=== PATIENT | male | born 1965 | race Caucasian/White ===

== ENCOUNTER 2020-11-22 09:17 | Inpatient (IN) | payer OTHER ==
[2020-11-22 10:32] VITALS: BMI 23.7
[2020-11-22] MEDS ORDERED: MAG HYDROX/AL HYDROX/SIMETH 30 ML UNIT-DOSE CUP PO PRN (13:29)
[2020-11-22] MEDS ORDERED: NICOTINE POLACRILEX 4 MG GUM BC PRN (13:29)
[2020-11-22] MEDS ORDERED: MAGNESIUM CITRATE 300 ML BOTTLE PO PRN (13:29)
[2020-11-22] MEDS ORDERED: P-EPHED 60MG/TRIPROLIDI 2.5MG TABLET PO PRN (13:29)
[2020-11-22] MEDS ORDERED: LOPERAMIDE HCL 2 MG CAPSULE PO PRN (13:29)
[2020-11-22] MEDS ORDERED: IBUPROFEN 400 MG TABLET (FP) PO PRN (13:29)
[2020-11-22] MEDS ORDERED: MAGNESIUM HYDROX 2400MG/30ML ORAL SUSPENSION 30 ML CUP PO PRN (13:29)
[2020-11-22] MEDS ORDERED: NICOTINE 21 MG/24 HOURS TOPICAL PATCH TD PRN (13:29)
[2020-11-22] MEDS ORDERED: ACETAMINOPHEN 325 MG TABLET (FP) PO PRN (13:29)
[2020-11-22] MEDS ORDERED: NICOTINE 10 MG CARTRIDGE (INHALER) IH PRN (13:29)
[2020-11-22] MEDS ORDERED: guaiFENesin 200 MG/10 ML 10 ML UNIT-DOSE CUPS PO PRN (13:29)
[2020-11-22] MEDS ORDERED: NICOTINE 7 MG/24 HOURS TOPICAL PATCH TD SCH (13:30)
[2020-11-22] MEDS: PRENATAL VITAMINS W/ FOLIC ACID TABLET (FP) PO SCH (14:34)
[2020-11-22] MEDS: hydrOXYzine PAMOATE 25 MG CAPSULE (FP) PO SCH ×3 (14:34→21:27)
[2020-11-22 18:00] LABS: HEMATOCRIT 44.9 % (35.4-49); HEMOGLOBIN 15.6 GM/dL (11.7-16.9); MCH 31.5 pg (25.7-33.7); MCHC 34.8 g/dl (32.0-35.9); MEAN CELL VOLUME 90.5 fl (80-96); MEAN PLT VOLUME 9.1 fl (7.5-11.1); PLATELET COUNT 222 10^3/uL (134-434); RBC 4.96 M/mm3 (4.00-5.60); RDW 12.9 % (11.9-15.9)
[2020-11-22 18:08] LABS: CALCIUM 8.7 mg/dL (8.5-10.1)
[2020-11-22 18:09] LABS: ALBUMIN 3.7 g/dl (3.4-5.0); BLOOD UREA NITROGEN 15.2 mg/dL (7-18)
[2020-11-22 18:12] LABS: CREATININE 0.8 mg/dL (0.55-1.3)
[2020-11-22 18:14] LABS: BILIRUBIN,TOTAL 0.3 mg/dL (0.2-1); TOT PROT 7.5 g/dl (6.4-8.2)
[2020-11-22 18:28] LABS: SYPHILIS W/ RPR CONF NON-REACTIVE (NONREACTIVE)
[2020-11-22 18:56] LABS: HIV INTERPRETATION NEGATIVE (NEGATIVE)
[2020-11-22] MEDS: THIAMINE HCL 100 MG TABLET (FP) PO SCH (21:27)
[2020-11-22] MEDS: MELATONIN 5 MG TABLETS PO SCH (21:27)
[2020-11-23] MEDS: hydrOXYzine PAMOATE 25 MG CAPSULE (FP) PO SCH ×2 (06:38→09:11)
[2020-11-23] MEDS ORDERED: methaDONE HCL 10 MG TABLET PO SCH (08:00)
[2020-11-23] MEDS ORDERED: methaDONE HCL 40 MG DISPERSABLE TABLET ONE (08:34)
[2020-11-23] MEDS ORDERED: methaDONE HCL 10 MG TABLET ONE (08:34)
[2020-11-23] MEDS: methaDONE 40 MG, methaDONE 10 MG PO SCH (08:42)
[2020-11-23] MEDS: PRENATAL VITAMINS W/ FOLIC ACID TABLET (FP) PO SCH (09:11)
[2020-11-23] MEDS ORDERED: hydrOXYzine PAMOATE 25 MG CAPSULE (FP) PO PRN (09:40)
[2020-11-23] MEDS ORDERED: FLU VACC QS2021-22(6MOS UP)/PF 60 MCG/0.5 ML SYRINGE IM ONE (12:00)
[2020-11-23] MEDS ORDERED: PT OWN MED DRAWER 7, Y5N ONE ×2 (13:50→15:58)
[2020-11-23 20:14] LABS: EPI CELLS 16 /uL (0-25.1); HYALINE CASTS 4 /uL (0-3.1); PH,URINE 6.5 (5.0-8.0); URINE APPEARANCE CLOUDY; URINE BACTERIA 48 /uL (0-1359); URINE BILIRUBIN NEGATIVE (NEGATIVE); URINE COLOR YELLOW; URINE GLUCOSE (UA) NEGATIVE (NEGATIVE); URINE KETONE NEGATIVE (NEGATIVE); URINE LEUK ESTERASE 3+ (NEGATIVE); URINE NITRITE NEGATIVE (NEGATIVE); URINE PROTEIN NEGATIVE (NEGATIVE); URINE RBC 36 /uL (0-23.9); URINE UROBILINOGEN 0.2 mg/dL (0.2-1.0); URINE WBC 1471 /uL (0-25.8)
[2020-11-23] MEDS: THIAMINE HCL 100 MG TABLET (FP) PO SCH (21:17)
[2020-11-23] MEDS: MELATONIN 5 MG TABLETS PO SCH (21:18)
[2020-11-23 21:57] LABS: YEAST SEEN (NEGATIVE)
[2020-11-24] MEDS ORDERED: methaDONE HCL 10 MG TABLET ONE (05:32)
[2020-11-24] MEDS ORDERED: methaDONE HCL 40 MG DISPERSABLE TABLET ONE (05:33)
[2020-11-24] MEDS: methaDONE 40 MG, methaDONE 10 MG PO SCH (06:37)
[2020-11-24] MEDS: PRENATAL VITAMINS W/ FOLIC ACID TABLET (FP) PO SCH (09:39)
[2020-11-24] MEDS ORDERED: PT OWN MED DRAWER 7, Y5N ONE ×2 (09:57→13:10)
[2020-11-24] MEDS: MELATONIN 5 MG TABLETS PO SCH (21:27)
[2020-11-24] MEDS: THIAMINE HCL 100 MG TABLET (FP) PO SCH (21:27)
[2020-11-25] MEDS ORDERED: methaDONE HCL 40 MG DISPERSABLE TABLET ONE (05:15)
[2020-11-25] MEDS ORDERED: methaDONE HCL 10 MG TABLET ONE (05:15)
[2020-11-25] MEDS: methaDONE 40 MG, methaDONE 10 MG PO SCH (06:37)
[2020-11-25 06:50] VITALS: BP 124/85; PULSE 60; TEMP 97.5
[2020-11-25] MEDS: PRENATAL VITAMINS W/ FOLIC ACID TABLET (FP) PO SCH (09:42)
== END 2020-11-25 11:53 | disposition home or self-care (01) | DRG 772 ==
LOC: YASAS 09:17 → Y3E 13:47
PROVIDERS: ADMIT Allergy & Immunology; ATTEND Allergy & Immunology
PROC: HZ42ZZZ Group Counseling for Substance Abuse Treatment, Cognitive-Behavioral (ICD-10-PCS; principal; 2020-11-22)
DX: F11.20 Opioid dependence, uncomplicated (principal); F10.20 Alcohol dependence, uncomplicated; F17.210 Nicotine dependence, cigarettes, uncomplicated; Z87.442 Personal history of urinary calculi
CPT/HCPCS: 36415; 71046-TC-FY; 80053; 81003; 85027; 86780; 86803; 87077; 87086; 87389; 87522; 90686; C9803; G0008; U0003; U0005

== ENCOUNTER 2021-07-25 11:35 | Inpatient (IN) | payer OTHER ==
[2021-07-25 11:55] VITALS: BMI 24.3
[2021-07-25] MEDS ORDERED: NICOTINE 10 MG CARTRIDGE (INHALER) IH PRN (12:42)
[2021-07-25] MEDS ORDERED: LOPERAMIDE HCL 2 MG CAPSULE PO PRN (12:42)
[2021-07-25] MEDS ORDERED: DICYCLOMINE HCL 10 MG CAPSULE PO PRN (12:42)
[2021-07-25] MEDS ORDERED: IBUPROFEN 400 MG TABLET (FP) PO PRN (12:42)
[2021-07-25] MEDS ORDERED: MAGNESIUM CITRATE 300 ML BOTTLE PO PRN (12:42)
[2021-07-25] MEDS ORDERED: ACETAMINOPHEN 325 MG TABLET (FP) PO PRN ×2 (12:42)
[2021-07-25] MEDS ORDERED: ONDANSETRON *ODT* 4 MG TABLET SL PRN (12:42)
[2021-07-25] MEDS ORDERED: MAGNESIUM HYDROX 2400MG/30ML ORAL SUSPENSION 30 ML CUP PO PRN (12:42)
[2021-07-25] MEDS ORDERED: IBUPROFEN 600 MG TABLET (FP) PO PRN (12:42)
[2021-07-25] MEDS ORDERED: BENZOCAINE/MENTHOL (CHLORASEPTIC ) LOZENGE MM PRN (12:42)
[2021-07-25] MEDS ORDERED: MAG HYDROX/AL HYDROX/SIMETH 30 ML UNIT-DOSE CUP PO PRN (12:42)
[2021-07-25] MEDS ORDERED: BISMUTH SUBSALICYLATE 524 MG/30 ML PO PRN (12:42)
[2021-07-25] MEDS: NICOTINE 21 MG/24 HOURS TOPICAL PATCH TD SCH (15:43)
[2021-07-25] MEDS: hydrOXYzine PAMOATE 25 MG CAPSULE (FP) PO SCH ×3 (15:43→22:32)
[2021-07-25 16:41] LABS: CALCIUM 9.6 mg/dL (8.5-10.1)
[2021-07-25 16:42] LABS: ALBUMIN 3.9 g/dl (3.4-5.0); BLOOD UREA NITROGEN 22.4 mg/dL (7-18)
[2021-07-25 16:45] LABS: CREATININE 0.7 mg/dL (0.55-1.3)
[2021-07-25 16:46] LABS: BILIRUBIN,TOTAL 0.4 mg/dL (0.2-1); RDW 12.8 % (11.9-15.9); TOT PROT 7.3 g/dl (6.4-8.2); WHITE BLOOD COUNT 6.9 K/mm3 (4.0-10.0)
[2021-07-25 16:49] LABS: HEMATOCRIT 42.8 % (35.4-49); HEMOGLOBIN 14.7 GM/dL (11.7-16.9); MCH 30.4 pg (25.7-33.7); MCHC 34.3 g/dl (32.0-35.9); MEAN CELL VOLUME 88.9 fl (80-96); MEAN PLT VOLUME 9.4 fl (7.5-11.1); PLATELET COUNT 276 10^3/uL (134-434); RBC 4.81 M/mm3 (4.00-5.60)
[2021-07-25] MEDS: THIAMINE HCL 100 MG TABLET (FP) PO SCH (22:32)
[2021-07-25] MEDS: MELATONIN 5 MG TABLETS PO SCH (22:32)
[2021-07-26] MEDS ORDERED: diazePAM 5 MG TABLET PO SCH (05:00)
[2021-07-26] MEDS: hydrOXYzine PAMOATE 25 MG CAPSULE (FP) PO SCH ×5 (05:59→22:21)
[2021-07-26] MEDS ORDERED: methaDONE HCL 10 MG TABLET PO ONE (09:15)
[2021-07-26] MEDS ORDERED: methaDONE 40 MG, methaDONE 10 MG PO ONE (09:41)
[2021-07-26] MEDS ORDERED: methaDONE HCL 40 MG DISPERSABLE TABLET ONE (09:47)
[2021-07-26] MEDS ORDERED: methaDONE HCL 10 MG TABLET ONE (09:47)
[2021-07-26] MEDS ORDERED: diazePAM 5 MG TABLET PO PRN (09:49)
[2021-07-26] MEDS: PRENATAL VITAMINS W/ FOLIC ACID TABLET (FP) PO SCH (10:16)
[2021-07-26] MEDS: METHOCARBAMOL 500 MG TABLET PO PRN (10:16)
[2021-07-26] MEDS: NICOTINE 21 MG/24 HOURS TOPICAL PATCH TD SCH (10:17)
[2021-07-26] MEDS: diazePAM 5 MG TABLET PO SCH ×3 (10:45→22:21)
[2021-07-26] MEDS: MELATONIN 5 MG TABLETS PO SCH (22:21)
[2021-07-26] MEDS: THIAMINE HCL 100 MG TABLET (FP) PO SCH (22:21)
[2021-07-27] MEDS ORDERED: methaDONE HCL 10 MG TABLET ONE (04:10)
[2021-07-27] MEDS ORDERED: methaDONE HCL 40 MG DISPERSABLE TABLET ONE (04:10)
[2021-07-27] MEDS: methaDONE 40 MG, methaDONE 10 MG PO SCH (05:38)
[2021-07-27] MEDS: diazePAM 5 MG TABLET PO SCH ×3 (05:39→21:31)
[2021-07-27] MEDS: hydrOXYzine PAMOATE 25 MG CAPSULE (FP) PO SCH ×5 (05:39→21:30)
[2021-07-27] MEDS ORDERED: methaDONE HCL 10 MG TABLET PO SCH (06:00)
[2021-07-27] MEDS: PRENATAL VITAMINS W/ FOLIC ACID TABLET (FP) PO SCH (10:30)
[2021-07-27] MEDS: METHOCARBAMOL 500 MG TABLET PO PRN (10:31)
[2021-07-27] MEDS: NICOTINE 21 MG/24 HOURS TOPICAL PATCH TD SCH (10:31)
[2021-07-27] MEDS: MELATONIN 5 MG TABLETS PO SCH (21:31)
[2021-07-27] MEDS: THIAMINE HCL 100 MG TABLET (FP) PO SCH (21:31)
[2021-07-28] MEDS ORDERED: methaDONE HCL 10 MG TABLET ONE (04:37)
[2021-07-28] MEDS ORDERED: methaDONE HCL 40 MG DISPERSABLE TABLET ONE (04:38)
[2021-07-28] MEDS: diazePAM 5 MG TABLET PO SCH ×2 (05:56→17:38)
[2021-07-28] MEDS: methaDONE 40 MG, methaDONE 10 MG PO SCH (05:56)
[2021-07-28] MEDS: hydrOXYzine PAMOATE 25 MG CAPSULE (FP) PO SCH ×5 (05:56→22:33)
[2021-07-28] MEDS: PRENATAL VITAMINS W/ FOLIC ACID TABLET (FP) PO SCH (10:37)
[2021-07-28] MEDS: METHOCARBAMOL 500 MG TABLET PO PRN (10:37)
[2021-07-28] MEDS: NICOTINE 21 MG/24 HOURS TOPICAL PATCH TD SCH (10:37)
[2021-07-28] MEDS: THIAMINE HCL 100 MG TABLET (FP) PO SCH (22:33)
[2021-07-28] MEDS: MELATONIN 5 MG TABLETS PO SCH (22:33)
[2021-07-29] MEDS ORDERED: methaDONE HCL 10 MG TABLET ONE (04:19)
[2021-07-29] MEDS ORDERED: methaDONE HCL 40 MG DISPERSABLE TABLET ONE (04:19)
[2021-07-29] MEDS: methaDONE 40 MG, methaDONE 10 MG PO SCH (05:40)
[2021-07-29] MEDS: hydrOXYzine PAMOATE 25 MG CAPSULE (FP) PO SCH ×2 (05:41→10:25)
[2021-07-29] MEDS ORDERED: diazePAM 5 MG TABLET PO ONE (06:00)
[2021-07-29 06:43] VITALS: TEMP 97.3
[2021-07-29 09:29] VITALS: BP 117/96; PULSE 98
[2021-07-29] MEDS: NICOTINE 21 MG/24 HOURS TOPICAL PATCH TD SCH (10:25)
[2021-07-29] MEDS: PRENATAL VITAMINS W/ FOLIC ACID TABLET (FP) PO SCH (10:25)
== END 2021-07-29 12:47 | disposition other institution (70) | DRG 773 ==
LOC: YASAS 11:35 → Y6N 13:13
PROVIDERS: ADMIT Allergy & Immunology; ATTEND Surgery
PROC: HZ2ZZZZ Detoxification Services for Substance Abuse Treatment (ICD-10-PCS; principal; 2021-07-25)
DX: F10.230 Alcohol dependence with withdrawal, uncomplicated (principal); F11.20 Opioid dependence, uncomplicated; F17.210 Nicotine dependence, cigarettes, uncomplicated; K21.9 Gastro-esophageal reflux disease without esophagitis; Z87.442 Personal history of urinary calculi
CPT/HCPCS: 36415; 80053; 85027; 86780; 87811; C9803-CS; U0003; U0005

== ENCOUNTER 2021-07-29 12:09 | Inpatient (IN) | payer OTHER ==
[2021-07-29] MEDS ORDERED: guaiFENesin 200 MG/10 ML 10 ML UNIT-DOSE CUPS PO PRN (12:20)
[2021-07-29] MEDS ORDERED: hydrOXYzine PAMOATE 25 MG CAPSULE (FP) PO PRN (12:20)
[2021-07-29] MEDS ORDERED: MAGNESIUM HYDROX 2400MG/30ML ORAL SUSPENSION 30 ML CUP PO PRN (12:20)
[2021-07-29] MEDS ORDERED: BENZOCAINE/MENTHOL (CHLORASEPTIC ) LOZENGE MM PRN (12:20)
[2021-07-29] MEDS ORDERED: LOPERAMIDE HCL 2 MG CAPSULE PO PRN (12:20)
[2021-07-29] MEDS ORDERED: ACETAMINOPHEN 325 MG TABLET (FP) PO PRN (12:20)
[2021-07-29] MEDS ORDERED: IBUPROFEN 400 MG TABLET (FP) PO PRN (12:20)
[2021-07-29] MEDS ORDERED: MAGNESIUM CITRATE 300 ML BOTTLE PO PRN (12:20)
[2021-07-29] MEDS ORDERED: P-EPHED 60MG/TRIPROLIDI 2.5MG TABLET PO PRN (12:20)
[2021-07-29] MEDS ORDERED: NICOTINE 10 MG CARTRIDGE (INHALER) IH PRN (12:20)
[2021-07-29] MEDS ORDERED: MAG HYDROX/AL HYDROX/SIMETH 30 ML UNIT-DOSE CUP PO PRN (12:20)
[2021-07-29] MEDS ORDERED: METHOCARBAMOL 500 MG TABLET PO PRN (12:23)
[2021-07-29] MEDS: MELATONIN 5 MG TABLETS PO SCH (21:14)
[2021-07-29] MEDS: THIAMINE HCL 100 MG TABLET (FP) PO SCH (21:16)
[2021-07-30] MEDS: NICOTINE 7 MG/24 HOURS TOPICAL PATCH TD SCH (09:35)
[2021-07-30] MEDS: PRENATAL VITAMINS W/ FOLIC ACID TABLET (FP) PO SCH (09:35)
[2021-07-30] MEDS ORDERED: methaDONE HCL 10 MG TABLET ONE (10:15)
[2021-07-30] MEDS ORDERED: methaDONE HCL 40 MG DISPERSABLE TABLET ONE (10:16)
[2021-07-30] MEDS: methaDONE 40 MG, methaDONE 10 MG PO SCH (10:20)
[2021-07-30] MEDS: methaDONE HCL 40 MG DISPERSABLE TABLET PO SCH (10:29)
[2021-07-30 12:28] LABS: HIV INTERPRETATION NEGATIVE (NEGATIVE)
[2021-07-30] MEDS: THIAMINE HCL 100 MG TABLET (FP) PO SCH (21:45)
[2021-07-30] MEDS: MELATONIN 5 MG TABLETS PO SCH (21:45)
[2021-07-31] MEDS ORDERED: methaDONE HCL 40 MG DISPERSABLE TABLET ONE (04:03)
[2021-07-31] MEDS ORDERED: methaDONE HCL 10 MG TABLET ONE (04:03)
[2021-07-31] MEDS: methaDONE 40 MG, methaDONE 10 MG PO SCH (06:20)
[2021-07-31] MEDS: NICOTINE 7 MG/24 HOURS TOPICAL PATCH TD SCH (10:03)
[2021-07-31] MEDS: PRENATAL VITAMINS W/ FOLIC ACID TABLET (FP) PO SCH (10:03)
[2021-07-31] MEDS: MELATONIN 5 MG TABLETS PO SCH (21:04)
[2021-07-31] MEDS: THIAMINE HCL 100 MG TABLET (FP) PO SCH (21:04)
[2021-08-01] MEDS ORDERED: methaDONE HCL 10 MG TABLET ONE (04:27)
[2021-08-01] MEDS ORDERED: methaDONE HCL 40 MG DISPERSABLE TABLET ONE (04:28)
[2021-08-01] MEDS: methaDONE 40 MG, methaDONE 10 MG PO SCH (06:28)
[2021-08-01] MEDS: NICOTINE 7 MG/24 HOURS TOPICAL PATCH TD SCH (09:46)
[2021-08-01] MEDS: PRENATAL VITAMINS W/ FOLIC ACID TABLET (FP) PO SCH (09:46)
[2021-08-01] MEDS: THIAMINE HCL 100 MG TABLET (FP) PO SCH (21:16)
[2021-08-01] MEDS: MELATONIN 5 MG TABLETS PO SCH (21:16)
[2021-08-02] MEDS ORDERED: methaDONE HCL 10 MG TABLET ONE (05:08)
[2021-08-02] MEDS ORDERED: methaDONE HCL 40 MG DISPERSABLE TABLET ONE (05:08)
[2021-08-02] MEDS: methaDONE 40 MG, methaDONE 10 MG PO SCH (06:13)
[2021-08-02] MEDS: PRENATAL VITAMINS W/ FOLIC ACID TABLET (FP) PO SCH (09:42)
[2021-08-02] MEDS: NICOTINE 7 MG/24 HOURS TOPICAL PATCH TD SCH (09:42)
[2021-08-02] MEDS: THIAMINE HCL 100 MG TABLET (FP) PO SCH (21:28)
[2021-08-02] MEDS: MELATONIN 5 MG TABLETS PO SCH (21:28)
[2021-08-03] MEDS ORDERED: methaDONE HCL 10 MG TABLET ONE (03:03)
[2021-08-03] MEDS ORDERED: methaDONE HCL 40 MG DISPERSABLE TABLET ONE (03:04)
[2021-08-03] MEDS: methaDONE 40 MG, methaDONE 10 MG PO SCH (06:19)
[2021-08-03] MEDS: PRENATAL VITAMINS W/ FOLIC ACID TABLET (FP) PO SCH (09:33)
[2021-08-03] MEDS: NICOTINE 7 MG/24 HOURS TOPICAL PATCH TD SCH (09:33)
[2021-08-03] MEDS: THIAMINE HCL 100 MG TABLET (FP) PO SCH (21:13)
[2021-08-03] MEDS: MELATONIN 5 MG TABLETS PO SCH (21:13)
[2021-08-04] MEDS ORDERED: methaDONE HCL 40 MG DISPERSABLE TABLET ONE (03:12)
[2021-08-04] MEDS ORDERED: methaDONE HCL 10 MG TABLET ONE (03:12)
[2021-08-04] MEDS: methaDONE 40 MG, methaDONE 10 MG PO SCH (07:02)
[2021-08-04] MEDS: NICOTINE 7 MG/24 HOURS TOPICAL PATCH TD SCH (09:46)
[2021-08-04] MEDS: PRENATAL VITAMINS W/ FOLIC ACID TABLET (FP) PO SCH (09:46)
[2021-08-04] MEDS: MELATONIN 5 MG TABLETS PO SCH (22:02)
[2021-08-04] MEDS: THIAMINE HCL 100 MG TABLET (FP) PO SCH (22:02)
[2021-08-05] MEDS ORDERED: methaDONE HCL 10 MG TABLET ONE (03:02)
[2021-08-05] MEDS ORDERED: methaDONE HCL 40 MG DISPERSABLE TABLET ONE (03:03)
[2021-08-05] MEDS: methaDONE 40 MG, methaDONE 10 MG PO SCH (06:09)
[2021-08-05] MEDS: PRENATAL VITAMINS W/ FOLIC ACID TABLET (FP) PO SCH (09:33)
[2021-08-05] MEDS: NICOTINE 7 MG/24 HOURS TOPICAL PATCH TD SCH (09:33)
[2021-08-05] MEDS: THIAMINE HCL 100 MG TABLET (FP) PO SCH (21:24)
[2021-08-05] MEDS: MELATONIN 5 MG TABLETS PO SCH (21:24)
[2021-08-06] MEDS ORDERED: methaDONE HCL 10 MG TABLET ONE (03:03)
[2021-08-06] MEDS ORDERED: methaDONE HCL 40 MG DISPERSABLE TABLET ONE (03:03)
[2021-08-06] MEDS: methaDONE 40 MG, methaDONE 10 MG PO SCH (06:29)
[2021-08-06] MEDS: PRENATAL VITAMINS W/ FOLIC ACID TABLET (FP) PO SCH (09:21)
[2021-08-06] MEDS: NICOTINE 7 MG/24 HOURS TOPICAL PATCH TD SCH (09:21)
[2021-08-06] MEDS: THIAMINE HCL 100 MG TABLET (FP) PO SCH (22:16)
[2021-08-06] MEDS: MELATONIN 5 MG TABLETS PO SCH (22:16)
[2021-08-07] MEDS ORDERED: methaDONE HCL 10 MG TABLET PO SCH (06:15)
[2021-08-07] MEDS ORDERED: methaDONE HCL 40 MG DISPERSABLE TABLET ONE (06:17)
[2021-08-07] MEDS ORDERED: methaDONE HCL 10 MG TABLET ONE (06:17)
[2021-08-07] MEDS: methaDONE 40 MG, methaDONE 10 MG PO SCH (06:18)
[2021-08-07] MEDS: PRENATAL VITAMINS W/ FOLIC ACID TABLET (FP) PO SCH (09:41)
[2021-08-07] MEDS: NICOTINE 7 MG/24 HOURS TOPICAL PATCH TD SCH (09:42)
[2021-08-07] MEDS: THIAMINE HCL 100 MG TABLET (FP) PO SCH (21:49)
[2021-08-07] MEDS: MELATONIN 5 MG TABLETS PO SCH (21:49)
[2021-08-08] MEDS ORDERED: methaDONE HCL 10 MG TABLET ONE (03:19)
[2021-08-08] MEDS ORDERED: methaDONE HCL 40 MG DISPERSABLE TABLET ONE (03:19)
[2021-08-08] MEDS: methaDONE 40 MG, methaDONE 10 MG PO SCH (06:42)
[2021-08-08 06:56] VITALS: TEMP 97.1
[2021-08-08 09:21] VITALS: BP 123/87; PULSE 84
[2021-08-08] MEDS: PRENATAL VITAMINS W/ FOLIC ACID TABLET (FP) PO SCH (09:55)
[2021-08-08] MEDS: NICOTINE 7 MG/24 HOURS TOPICAL PATCH TD SCH (09:55)
== END 2021-08-08 10:04 | disposition home or self-care (01) | DRG 772 ==
LOC: YASAS 12:09 → Y3E 12:15
PROVIDERS: ADMIT Allergy & Immunology; ATTEND Psychiatry & Neurology Psychiatry
PROC: HZ42ZZZ Group Counseling for Substance Abuse Treatment, Cognitive-Behavioral (ICD-10-PCS; principal; 2021-07-29)
DX: F10.20 Alcohol dependence, uncomplicated (principal); F11.20 Opioid dependence, uncomplicated; F17.210 Nicotine dependence, cigarettes, uncomplicated; Z87.442 Personal history of urinary calculi
CPT/HCPCS: 36415; 87389

== ENCOUNTER 2022-10-24 10:03 | Inpatient (IN) | payer OTHER ==
[2022-10-24 10:22] VITALS: BMI 24.3
[2022-10-24] MEDS ORDERED: MAGNESIUM HYDROX 2400MG/30ML ORAL SUSPENSION 30 ML CUP PO PRN (10:55)
[2022-10-24] MEDS ORDERED: LOPERAMIDE HCL 2 MG CAPSULE PO PRN (10:55)
[2022-10-24] MEDS ORDERED: ACETAMINOPHEN 325 MG TABLET (FP) PO PRN (10:55)
[2022-10-24] MEDS ORDERED: MAG HYDROX/AL HYDROX/SIMETH 30 ML UNIT-DOSE CUP PO PRN (10:55)
[2022-10-24] MEDS ORDERED: IBUPROFEN 600 MG TABLET (FP) PO PRN (10:55)
[2022-10-24] MEDS ORDERED: NALOXONE HCL 0.4 MG/ML VIAL IM PRN (10:55)
[2022-10-24] MEDS ORDERED: ONDANSETRON *ODT* 4 MG TABLET SL PRN (10:55)
[2022-10-24] MEDS ORDERED: BISMUTH SUBSALICYLATE 524 MG/30 ML PO PRN (10:55)
[2022-10-24] MEDS ORDERED: guaiFENesin 600 MG TABLET.ER (FP) PO PRN (10:55)
[2022-10-24] MEDS ORDERED: BENZOCAINE/MENTHOL (CHLORASEPTIC ) LOZENGE MM PRN (10:55)
[2022-10-24] MEDS ORDERED: DICYCLOMINE HCL 10 MG CAPSULE PO PRN (10:55)
[2022-10-24] MEDS ORDERED: POLYETHYLENE GLYCOL (HEALTHYLAX) 3350 17 GM PACKET PO PRN (10:55)
[2022-10-24] MEDS ORDERED: NICOTINE POLACRILEX 2 MG GUM BUC PRN (10:55)
[2022-10-24] MEDS ORDERED: BENZONATATE 200 MG CAPSULE PO PRN (10:55)
[2022-10-24] MEDS ORDERED: NALOXONE HCL (KLOXXADO) 8 MG SPRAY NS PRN (10:55)
[2022-10-24] MEDS ORDERED: IBUPROFEN 400 MG TABLET (FP) PO PRN (10:55)
[2022-10-24] MEDS: THIAMINE HCL 100 MG TABLET (FP) PO SCH (22:25)
[2022-10-24] MEDS: METHOCARBAMOL 500 MG TABLET PO PRN (22:25)
[2022-10-24] MEDS: MELATONIN 5 MG TABLETS PO SCH (22:25)
[2022-10-24] MEDS: hydrOXYzine PAMOATE 25 MG CAPSULE (FP) PO PRN (22:25)
[2022-10-25] MEDS: methaDONE 40 MG, methaDONE 10 MG PO SCH (05:48)
[2022-10-25] MEDS ORDERED: methaDONE HCL 10 MG TABLET PO SCH (06:00)
[2022-10-25] MEDS ORDERED: diazePAM 5 MG TABLET PO PRN (09:33)
[2022-10-25] MEDS: PRENATAL VITAMINS W/ FOLIC ACID TABLET (FP) PO SCH (10:40)
[2022-10-25] MEDS: diazePAM 5 MG TABLET PO SCH ×3 (10:40→22:27)
[2022-10-25] MEDS: hydrOXYzine PAMOATE 25 MG CAPSULE (FP) PO PRN (10:40)
[2022-10-25] MEDS: NICOTINE 14 MG/24 HOURS TOPICAL PATCH TD SCH (10:41)
[2022-10-25 10:50] LABS: POTASSIUM 4.7 mmol/L (3.5-5.1)
[2022-10-25 10:52] LABS: CALCIUM 8.8 mg/dL (8.5-10.1); HEMOGLOBIN 14.7 GM/dL (11.7-16.9)
[2022-10-25 10:53] LABS: ALBUMIN 3.8 g/dl (3.4-5.0); BLOOD UREA NITROGEN 19.6 mg/dL (7-18)
[2022-10-25 10:54] LABS: HEMATOCRIT 41.4 % (35.4-49); MCH 31.1 pg (25.7-33.7); MCHC 35.5 g/dl (32.0-35.9); MEAN CELL VOLUME 87.5 fl (80-96); MEAN PLT VOLUME 8.7 fl (7.5-11.1); PLATELET COUNT 211 10^3/uL (134-434); RBC 4.73 M/mm3 (4.00-5.60); WHITE BLOOD COUNT 8.5 K/mm3 (4.0-10.0)
[2022-10-25 10:55] LABS: CREATININE 0.7 mg/dL (0.55-1.3)
[2022-10-25 10:57] LABS: BILIRUBIN,TOTAL 0.4 mg/dL (0.2-1); TOT PROT 7.3 g/dl (6.4-8.2)
[2022-10-25] MEDS ORDERED: PNEUMOC 20-VAL CONJ-DIP CRM/PF 0.5 ML SYRINGE IM ONE (12:00)
[2022-10-25] MEDS: MELATONIN 5 MG TABLETS PO SCH (22:27)
[2022-10-25] MEDS: THIAMINE HCL 100 MG TABLET (FP) PO SCH (22:27)
[2022-10-26] MEDS: methaDONE 40 MG, methaDONE 10 MG PO SCH (05:34)
[2022-10-26] MEDS: diazePAM 5 MG TABLET PO SCH ×4 (05:34→22:24)
[2022-10-26] MEDS: PRENATAL VITAMINS W/ FOLIC ACID TABLET (FP) PO SCH (10:21)
[2022-10-26] MEDS: NICOTINE 14 MG/24 HOURS TOPICAL PATCH TD SCH (10:54)
[2022-10-26] MEDS: THIAMINE HCL 100 MG TABLET (FP) PO SCH (22:24)
[2022-10-26] MEDS: MELATONIN 5 MG TABLETS PO SCH (22:24)
[2022-10-27] MEDS: methaDONE 40 MG, methaDONE 10 MG PO SCH (05:46)
[2022-10-27] MEDS: diazePAM 5 MG TABLET PO SCH ×3 (05:46→22:09)
[2022-10-27] MEDS: PRENATAL VITAMINS W/ FOLIC ACID TABLET (FP) PO SCH (09:35)
[2022-10-27] MEDS: NICOTINE 14 MG/24 HOURS TOPICAL PATCH TD SCH (09:35)
[2022-10-27] MEDS: THIAMINE HCL 100 MG TABLET (FP) PO SCH (22:09)
[2022-10-27] MEDS: MELATONIN 5 MG TABLETS PO SCH (22:09)
[2022-10-28] MEDS: diazePAM 5 MG TABLET PO SCH ×2 (05:35→17:34)
[2022-10-28] MEDS: methaDONE 40 MG, methaDONE 10 MG PO SCH (05:37)
[2022-10-28] MEDS: PRENATAL VITAMINS W/ FOLIC ACID TABLET (FP) PO SCH (10:26)
[2022-10-28] MEDS: NICOTINE 14 MG/24 HOURS TOPICAL PATCH TD SCH (10:26)
[2022-10-28] MEDS: THIAMINE HCL 100 MG TABLET (FP) PO SCH (22:35)
[2022-10-28] MEDS: MELATONIN 5 MG TABLETS PO SCH (22:35)
[2022-10-28] MEDS: METHOCARBAMOL 500 MG TABLET PO PRN (22:35)
[2022-10-28] MEDS: hydrOXYzine PAMOATE 25 MG CAPSULE (FP) PO PRN (22:35)
[2022-10-29] MEDS: methaDONE 40 MG, methaDONE 10 MG PO SCH (05:47)
[2022-10-29] MEDS ORDERED: diazePAM 5 MG TABLET PO ONE (06:00)
[2022-10-29 09:50] VITALS: RESP 16
[2022-10-29] MEDS: NICOTINE 14 MG/24 HOURS TOPICAL PATCH TD SCH (10:15)
[2022-10-29] MEDS: PRENATAL VITAMINS W/ FOLIC ACID TABLET (FP) PO SCH (10:15)
[2022-10-29 13:07] VITALS: BP 135/82; PULSE 73; TEMP 98.1
== END 2022-10-29 13:09 | disposition home or self-care (01) | DRG 773 ==
LOC: YASAS 10:03 → Y3N 12:31
PROVIDERS: ADMIT Allergy & Immunology; ATTEND Surgery
PROC: HZ2ZZZZ Detoxification Services for Substance Abuse Treatment (ICD-10-PCS; principal; 2022-10-23)
DX: F10.230 Alcohol dependence with withdrawal, uncomplicated (principal); F11.10 Opioid abuse, uncomplicated; F17.210 Nicotine dependence, cigarettes, uncomplicated; K21.9 Gastro-esophageal reflux disease without esophagitis
CPT/HCPCS: 36415; 80053; 85027; 86780; 87635